=== PATIENT | female | born 1960 | race Hispanic/Latino ===

== ENCOUNTER 2016-11-02 01:53 | Emergency (ER) | payer OTHER ==
[~2016-11-02] VITALS: Ht 149.9 cm; Wt 81.6 kg
[~2016-11-02 01:53] MED LIST: AMBIEN 10MG10 MG PO; AMLODIPINE10 MG PO; ASPIR 8181 MG PO; ATORVASTATIN CA20 MG PO; BACTRIM DS 8001 TAB PO; DICYCLOMINE10 MG PO; ESCITALOPRAM20 MG PO; HYDRODIURIL 2525 MG PO; ISOSORBIDE MON120 MG PO; LYRICA100 MG PO; LYRICA50 MG PO; MASON NATURAL325 MG PO; METFORMIN HYDR500 M1 PO; MOBIC 15MG15 MG PO; NEXIUM 40MG40 MG PO; NITROGLYCERIN0.4 MG SL; NORCO 325 MG-51 TAB PO; NORFLEX100 MG PO; PERCOCET 325 MG1 TA3 PO; PROPRANOLOL HC160 MG PO; PROPRANOLOL HY160 MG PO; PROTONIX 40MG T40 MG PO; SKELAXIN800 MG PO; TRAZODONE100 MG PO; VALACYCLOVIR500 MG; VALACYCLOVIR500 MG PO; VANTIN200 MG PO; VICTOZA6 MG/ML; VICTOZA6 MG/ML SC; VIIBRYD40 MG PO; VOLTAREN GEL1% TOP; ZOLPIDEM TARTRAT5 MG PO; ZYRTEC ALLERGY10 MG PO
[2016-11-02 02:18] VITALS: BP 124/66
--- NOTE | 2016-11-02 02:19 | ED UPPER/LOWER EXTREMITY COMPL ---
History of Present Illness General Chief Complaint: Lower Extremity Problems Stated Complaint: SENT BY PMD C/O LT KNEE PAIN X'S 1 MTH AGO S/P FAL Source: patient Exam Limitations: no limitations Vital Signs & Intake/Output Vital Signs & Intake/Output Vital Signs Date Time Temp Pulse Resp B/P Pulse O2 O2 Flow FiO2 Ox Delivery Rate 11/02 0218 98.3 68 18 124/66 98 Room Air Allergies Coded Allergies: MDX - Tramadol (TRAMADOL) (SHORTNESS OF BREATH 06/26/15) Reconcile Medications Amlodipine Besylate (Amlodipine) 10 MG TABLET 1 TAB PO DAILY HEART/BP ( Reported) Aspirin (Ecotrin) 81 MG ECT 1 TAB PO DAILY HEART HEALTH (Reported) Atorvastatin Calcium (Lipitor) 20 MG TAB 1 TAB PO DAILY CHOLESTEROL (Reported ) Cefpodoxime Proxetil (Vantin) 200 MG TAB 1 TAB PO Q12H ANTIBIOTIC (Reported) CETIRIZINE HCL (Zyrtec) 10 MG SGL 1 CAP PO PRN ALLERGIES (Reported) Diclofenac Sodium (Voltaren) 1% GEL 1 GM TOP PRN PAIN (Reported) apply to affected area(s) DICYCLOMINE HCL (Dicyclomine HCl) 10 MG CAP 1 CAP PO PRN GI (Reported) Ferrous Sulfate 325 MG TAB 1 TAB PO DAILY SUPPLEMENT (Reported) Ibuprofen 600 MG TABLET 1 TAB PO TID PRN pain with food Isosorbide Mononitrate (Isosorbide Mononitrate ER) 120 MG TAB.ER.24H 1 TAB PO DAILY HEART (Reported) Liraglutide (Victoza 3-Raj) 6 MG/ML JASSON 1.8 mg SC DAILY DIABETES (Reported) METFORMIN HCL (Metformin HCl ER) 500 MG TAB.ER.24H 1 TAB PO BID DIABETES ( Reported) Nitroglycerin 0.4 MG TAB 1 TAB SL AD PRN ANGINA (Reported) OXYCODONE HCL/ACETAMINOPHEN (Percocet 7.5-325 MG Tablet) 325 MG/7.5 MG TAB 2 TAB PO Q6H PRN PAIN (Reported) Pantoprazole Sodium (Protonix) 40 MG TAB 1 TAB PO DAILY GI (Reported) Pregabalin (Lyrica) 100 MG CAP 1 CAP PO TID NERVE PAIN/ HOT FLASHES (Reported ) Propranolol Hydrochloride (Propranolol HCl) 160 MG CER 1 CAP PO DAILY MIGRAINES (Reported) VALACYCLOVIR HCL (Valacyclovir) 500 MG TAB 1 TAB PO DAILY ANTIVIRAL (Reported ) VILAZODONE (Viibryd) 40 MG TAB 1 TAB PO DAILY MENTAL HEALTH (Reported) Zolpidem Tartrate (Ambien 10MG) 10 MG TAB 1 TAB PO QPM SLEEP (Reported) Triage Nurses Notes Reviewed? yes HPI: 56 yo woman presents with left knee pain. She shares that she twisted her knee 1 month ago. She had a negative left knee xray. She presents with continued left knee pain and swelling of her left knee, left leg for the past 3-4 days. No recent injury. She is otherwise well. "My doctor said I should be worried about a blood clot. Past History Medical History Any Pertinent Medical History? see below for history Neurological: migraine Cardiovascular: hypertension, hyperlipidemia Musculoskeletal: NECK AND BACK PROBLEMS Endocrine: diabetes Surgical History Surgical History: tubal ligation, CARPAL TUNNEL Psychosocial History What is your primary language [place] Family History Hx Contributory? No Review of Systems Review of Systems Constitutional: Reports: no symptoms. EENTM: Reports: no symptoms. Respiratory: Reports: no symptoms. Cardiovascular: Reports: no symptoms. Gastrointestinal/Abdominal: Reports: no symptoms. Genitourinary: Reports: no symptoms. Musculoskeletal: Reports: no symptoms. Skin: Reports: no symptoms. Neurological/Psychological: Reports: no symptoms. Hematologic/Endocrine: Reports: no symptoms. Immunological: Reports: no symptoms. All Other Systems: Reviewed and Negative Physical Exam Physical Exam General Appearance: well developed/nourished, mild distress Head: atraumatic Eyes: Bilateral: normal appearance. Ears, Nose, Throat: normal pharynx, normal ENT inspection, hearing grossly normal Neck: normal inspection, supple Cardiovascular/Respiratory: regular rate/rhythm Back: normal inspection Leg Left: mild effusion in left knee. ligaments stable, but with pain elicited on left medial lateral ligaments with stress. 1+ pretibial pitting edema. Left ankle is normal. Skin: intact, normal color, warm/dry Lymphatic: no anterior cervical trevor Progress Differential Diagnosis: dvt vs internal knee injury vs other. Plan of Care: Orders Procedure Date/time Status XRY-KNEE COMPLETE LEFT 11/02 218 Active Departure Departure Disposition: HOME OR SELF CARE Condition: Stable Clinical Impression Primary Impression: Left knee injury Secondary Impressions: Edema Referrals: JORGE GAVIN MD (PCP/Family) Departure Forms: Customer Survey General Discharge Information Prescriptions: Current Visit Scripts Ibuprofen 1 TAB PO TID PRN pain #30 TAB with food Comments pt with modified well's criteria of -1 making dvt unlikely. I discussed this at length with patient. She will return later this morning for u/s. Will defer lovenox given extremely low clinical suspicion.
[2016-11-02] MEDS ORDERED: IBUPROFEN600 M1 PO (02:27)
== END 2016-11-02 02:44 ==
LOC: ERH 01:53
DX: M25.562 Pain in left knee (principal); S89.92XA Unspecified injury of left lower leg, initial encounter; R60.9 Edema, unspecified; X58.XXXA Exposure to other specified factors, initial encounter

== ENCOUNTER 2017-01-09 17:07 | Emergency (ER) | payer OTHER ==
[~2017-01-09 17:07] MED LIST changes: +IBUPROFEN600 M1 PO
[2017-01-09 17:40] VITALS: BP 126/76
[2017-01-09] MEDS ORDERED: NORCO 5-325 TA1 EACH PO (19:29)
[2017-01-09] MEDS ORDERED: MEDROL4 M2 PO (19:29)
--- NOTE | 2017-01-09 19:30 | ED NECK/BACK PAIN COMPLAINT ---
History of Present Illness General Chief Complaint: Neck/Upper Back Pain/Injury Stated Complaint: "LEFT NECK PAIN, ITS A MUSCLE THING" PER PT Source: patient Exam Limitations: no limitations Vital Signs & Intake/Output Vital Signs & Intake/Output Vital Signs Date Time Temp Pulse Resp B/P Pulse O2 O2 Flow FiO2 Ox Delivery Rate 01/09 1740 97.8 80 22 126/76 98 Room Air Allergies Coded Allergies: MDX - Tramadol (TRAMADOL) (SHORTNESS OF BREATH 06/26/15) Reconcile Medications Amlodipine Besylate (Amlodipine) 10 MG TABLET 1 TAB PO DAILY HEART/BP ( Reported) Aspirin (Ecotrin) 81 MG ECT 1 TAB PO DAILY HEART HEALTH (Reported) Atorvastatin Calcium (Lipitor) 20 MG TAB 1 TAB PO DAILY CHOLESTEROL (Reported ) Cefpodoxime Proxetil (Vantin) 200 MG TAB 1 TAB PO Q12H ANTIBIOTIC (Reported) CETIRIZINE HCL (Zyrtec) 10 MG SGL 1 CAP PO PRN ALLERGIES (Reported) Diclofenac Sodium (Voltaren) 1% GEL 1 GM TOP PRN PAIN (Reported) apply to affected area(s) DICYCLOMINE HCL (Dicyclomine HCl) 10 MG CAP 1 CAP PO PRN GI (Reported) Ferrous Sulfate 325 MG TAB 1 TAB PO DAILY SUPPLEMENT (Reported) Hydrocodone/Acetaminophen ([place] 5-325 Tablet) 5 MG-325 MG TABLET 1-2 TAB PO Q4-6 PRN PRN PAIN Ibuprofen 600 MG TABLET 1 TAB PO TID PRN pain with food Isosorbide Mononitrate (Isosorbide Mononitrate ER) 120 MG TAB.ER.24H 1 TAB PO DAILY HEART (Reported) Liraglutide (Victoza 3-Raj) 6 MG/ML JASSON 1.8 mg SC DAILY DIABETES (Reported) METFORMIN HCL (Metformin HCl ER) 500 MG TAB.ER.24H 1 TAB PO BID DIABETES ( Reported) Methylprednisolone. (Medrol) 4 MG TAB.DS.PK 1 DP PO AD CERVICAL RADICULOPATHY 6 on day 1 then reduce by one tablet daily until gone Nitroglycerin 0.4 MG TAB 1 TAB SL AD PRN ANGINA (Reported) OXYCODONE HCL/ACETAMINOPHEN (Percocet 7.5-325 MG Tablet) 325 MG/7.5 MG TAB 2 TAB PO Q6H PRN PAIN (Reported) Pantoprazole Sodium (Protonix) 40 MG TAB 1 TAB PO DAILY GI (Reported) Pregabalin (Lyrica) 100 MG CAP 1 CAP PO TID NERVE PAIN/ HOT FLASHES (Reported ) Propranolol Hydrochloride (Propranolol HCl) 160 MG CER 1 CAP PO DAILY MIGRAINES (Reported) VALACYCLOVIR HCL (Valacyclovir) 500 MG TAB 1 TAB PO DAILY ANTIVIRAL (Reported ) VILAZODONE (Viibryd) 40 MG TAB 1 TAB PO DAILY MENTAL HEALTH (Reported) Zolpidem Tartrate (Ambien 10MG) 10 MG TAB 1 TAB PO QPM SLEEP (Reported) Triage Note: PER PT CHRONIC NECK PAIN X 4 DAYS WORSE HX OF ARTHRITIS AND FIBROMYALGIA Triage Nurses Notes Reviewed? yes HPI: 56-year-old female with intermittent chronic neck pain from osteoarthritis and herniated disc presents with worsening left-sided neck pain that radiates down to the left trapezius region to left shoulder and down the left arm. She's been having these symptoms for last 4 days. They're severe. She called her primary care doctor who gave her Robaxin without relief. She is also tried Flexeril in the past for this which makes her too sleepy. She did not have any recent injury or trauma. No weakness or numbness. She is taking motion and Tylenol without relief. (LAINEY COOL) Past History Travel History Traveled to [place] past 21 day No Medical History Any Pertinent Medical History? see below for history Neurological: migraine EENT: NONE Cardiovascular: hypertension, hyperlipidemia Respiratory: NONE Gastrointestinal: NONE Hepatic: NONE Renal: NONE Musculoskeletal: NECK AND BACK PROBLEMS Endocrine: diabetes Surgical History Surgical History: tubal ligation, CARPAL TUNNEL Psychosocial History What is your primary language [place] Tobacco Use: Never used Family History Hx Contributory? No (LAINEY COOL) Review of Systems Review of Systems Constitutional: Reports: see HPI. Eyes: Reports: no symptoms. Ears, Nose, Throat, Mouth: Reports: no symptoms. Respiratory: Reports: no symptoms. Cardiovascular: Reports: no symptoms. Gastrointestinal/Abdominal: Reports: no symptoms. Musculoskeletal: Reports: see HPI. Skin: Reports: no symptoms. Neurological/Psychological: Reports: no symptoms. All Other Systems: Reviewed and Negative (LAINEY COOL) Physical Exam Physical Exam Neck: supple, full range of motion, normal alignment, muscle spasm, paraspinous muscle tender (left-sided), tender lateral (left side), no midline tenderness Neurologic/Psych: no motor/sensory deficits (bue wnl), awake, alert, oriented x 3, normal gait Comments: Well-developed well-nourished no apparent distress. HEENT: Atraumatic, extraocular motion intact Neck: Supple, no lymphadenopathy Back: Nontender Respiratory: No respiratory distress Extremities: No edema, full range of motion Neuro: Alert and oriented x3 Psych: Mood affect normal, normal memory normal judgment. Skin: Warm and dry, no rash on exposed skin (LAINEY COOL) Progress Differential Diagnosis: AAA, aortic dissection, C spine injury, carotid dissection, cauda equina syn, herniated disc, myofascial strain, pyelo/UTI, sciatica, spinal cord inj, thoracic outlet syn, T/L spine injury, ureterolithiasis Plan of Care: Due to radicular symptoms tx with Medrol Dosepak and Vicodin recommend follow-up with orthopedist (LAINEY COOL) Departure Departure Disposition: HOME OR SELF CARE Condition: Stable Clinical Impression Primary Impression: Cervical radiculopathy Referrals: ANSELMO SLOAN,ELIZABETH GAVIN MD,JORGE (PCP/Family) Additional Instructions: Take medications for pain and inflammation as needed. Rest, warm compresses, gentle stretching. Follow-up with orthopedist if no better in the next 5-7 days. Watch for worsening symptoms of pain, numbness or weakness down the arms, return with any concerns. Departure Forms: Customer Survey General Discharge Information Prescriptions: Current Visit Scripts Methylprednisolone. (Medrol) 1 DP PO AD #1 DP 6 on day 1 then reduce by one tablet daily until gone Hydrocodone/Acetaminophen ([place] 5-325 Tablet) 1-2 TAB PO Q4-6 PRN PRN PAIN #15 TAB (LAINEY COOL) PA/[employer] Co-Sign Statement Statement: ED Attending supervision documentation- [] I saw and evaluated the patient. I have also reviewed all the pertinent lab results and diagnostic results. I agree with the findings and the plan of care as documented in the PA's/F[employer] WORKER's documentation. x I have reviewed the ED Record and agree with the PA's/F[employer] WORKER's documentation. [] Additions or exceptions (if any) to the PAs/F[employer] WORKER's note and plan are summarized below: [] (JIMENEZ SLOAN,CIARRA)
== END 2017-01-09 19:31 ==
LOC: ERH 17:07
DX: M54.12 Radiculopathy, cervical region (principal)

== ENCOUNTER 2017-11-30 14:46 | Emergency (ER) | payer OTHER ==
[~2017-11-30] VITALS: Ht 149.9 cm; Wt 81.2 kg
[~2017-11-30 14:46] MED LIST changes: +MEDROL4 M2 PO; +NORCO 5-325 TA1 EACH PO
[2017-11-30 15:01] VITALS: BP 114/71
== END 2017-11-30 15:28 | disposition admitted as inpatient to this hospital (09) ==
LOC: ERH 14:46
DX: R51 Headache (principal)